=== PATIENT | female | born 1965 | race Caucasian/White ===

== ENCOUNTER 2017-05-24 10:08 | Inpatient (IN) | payer BC, OTHER ==
[2017-04-27 11:21] VITALS: BMI 48.0
--- NOTE | 2017-04-27 12:00 | PAT Medication Instructions ---
Service Date Apr 27, 2017. Current Home Medication List Atorvastatin (Lipitor), 40 MG PO QPM Bupropion (Wellbutrin-Xl), 300 MG PO QAM Celecoxib (CeleBREX), 200 MG PO QAM Clonazepam (Klonopin), 0.5 MG PO HS Cyclobenzaprine Hcl (Flexeril), 10 MG PO TID PRN for RN Duloxetine Hcl (Cymbalta), 60 MG PO QPM Ezetimibe (Zetia), 10 MG PO QPM Ferrous Sulfate (Kp Ferrous Sulfate), 1 TAB PO QAM Folic Acid (Folvite), 1 MG PO QAM Gabapentin (Neurontin), 300 MG PO QID Hydrochlorothiazide (Hydrochlorothiazide), 1 TAB PO QAM Insulin Detemir (Levemir), 35 INJ A/HS Losartan Potassium (Cozaar), 25 MG PO QAM Metformin Hcl (Glucophage), 1,000 MG PO BID Methotrexate (Methotrexate), 15 MG PO WEEKLY Omeprazole (Prilosec), 20 MG PO QAM Sitagliptin Phosphate (Januvia), 100 MG PO QAM Medication Instructions For Your Scheduled Surgery - Hold the following medications for 7 days per your surgeon's instructions: Methotrexate (Methotrexate), 15 MG PO WEEKLY Celecoxib (CeleBREX), 200 MG PO QAM - Hold the following medications 48 hours prior to surgery: Metformin Hcl (Glucophage), 1,000 MG PO BID - Hold the following medications the morning of surgery: Sitagliptin Phosphate (Januvia), 100 MG PO QAM Losartan Potassium (Cozaar), 25 MG PO QAM Hydrochlorothiazide (Hydrochlorothiazide), 1 TAB PO QAM Ferrous Sulfate (Kp Ferrous Sulfate), 1 TAB PO QAM Folic Acid (Folvite), 1 MG PO QAM Cyclobenzaprine Hcl (Flexeril), 10 MG PO TID PRN for RN - Take the following medications the morning of surgery with a sip of water: Omeprazole (Prilosec), 20 MG PO QAM Gabapentin (Neurontin), 300 MG PO QID Bupropion (Wellbutrin-Xl), 300 MG PO QAM - Take the following medications as scheduled the night before surgery: Gabapentin (Neurontin), 300 MG PO QID Ezetimibe (Zetia), 10 MG PO QPM Duloxetine Hcl (Cymbalta), 60 MG PO QPM Cyclobenzaprine Hcl (Flexeril), 10 MG PO TID PRN for RN (if needed) Clonazepam (Klonopin), 0.5 MG PO HS Atorvastatin (Lipitor), 40 MG PO QPM Insulin Detemir (Levemir), 35 INJ A/HS - For Insulin Dependent Diabetic patients: Test blood sugar A.M. of surgery. - If BLOOD SUGAR IS GREATER THAN 150, take half of your regular dose of: Insulin Detemir (Levemir), 35 INJ A/HS (TAKE 17 UNITS) - If BLOOD SUGAR IS LESS THAN 150, do not take any: Insulin Detemir ( Levemir), 35 INJ A/HS If you have any questions please call us at [phone] or [phone] or [phone]
--- NOTE | 2017-04-27 12:56 | DIAGNOSTIC IMAGING REPORT ---
TWO VIEW CHEST CLINICAL HISTORY: Preoperative examination. FINDINGS: PA and lateral chest radiographs are obtained. No prior studies are available for comparison at the time of dictation. The cardiomediastinal silhouette is unremarkable. The lungs and pleural spaces are clear. There is no pneumothorax. The bony thorax appears intact. IMPRESSION: No active disease in the chest. Electronically signed by: Alfredo Goncalves M.D. 04/27/2017 12:54 PM Dictated Date/Time: 04/27/2017 12:54 PM
[2017-04-27 13:01] LABS: BASO % 0.5 %; BASO ABS # 0.04 K/uL (0-0.2); COMPLETE YES; EOS % 3.3 %; HEMATOCRIT 30.8 % (37-47); IG% 0.3 %; LYMPH % 18.6 %; LYMPH ABS # 1.41 K/uL (1.2-3.4); MEAN CELL VOLUME 83.5 fL (80-100); MEAN CORPUSCULAR HEMOGLOBIN 26.3 pg (25-34); MEAN CORPUSCULAR HGB CONC 31.5 g/dl (32-36); MONO % 6.6 %; NEUT % 70.7 %; PLATELET COUNT 278 K/uL (130-400); RED BLOOD COUNT 3.69 M/uL (4.2-5.4); WHITE BLOOD COUNT 7.57 K/uL (4.8-10.8)
--- NOTE | 2017-04-27 13:04 | DIAGNOSTIC IMAGING REPORT ---
CERVICAL SPINE 3 VIEWS CLINICAL HISTORY: Preoperative examination. Rheumatoid arthritis. FINDINGS: Lateral views of the cervical spine in flexion and extension as well as in the neutral position are obtained. No prior studies are available for comparison at the time of dictation. The skeletal structures are well mineralized for age. Vertebral body height and alignment are maintained throughout the cervical spine. There is no evidence of inducible bony subluxation on the flexion/extension views. The atlantodental articulation appears maintained. The spinous processes are intact. The spinolaminar line is preserved. Anterior osteophytes are seen from C4 through C7. There is mild to moderate disc space narrowing seen at C4-C5, C5-C6, and C6-C7. Posterior disc osteophyte complexes at these levels likely contribute to acquired compromise of the central canal. The remaining disc spaces are preserved. The prevertebral soft tissues are within normal limits. IMPRESSION: 1. No acute bony abnormality is identified in the cervical spinal on these lateral views. 2. No bony subluxation is seen on the flexion/extension views. 3. Spondylotic change as above, greatest from C4-C5 through C6-C7. Dictated: 04/27/2017 12:55 PM Transcribed: 04/27/2017 1:03 PM [email or web address] Electronically signed by: Alfredo Goncalves M.D. 04/27/2017 1:05 PM Dictated Date/Time: 04/27/2017 12:55 PM
[2017-04-27 13:06] LABS: BUN/CREATININE RATIO 14.9 (10-20); CALCIUM 8.6 mg/dl (8.5-10.1); CREATININE 0.86 mg/dl (0.60-1.20)
[2017-04-27 13:15] LABS: URINE APPEARANCE CLEAR (CLEAR); URINE BILIRUBIN NEG (NEG); URINE COLOR YELLOW; URINE NITRITE NEG (NEG); URINE PH 5.5 (4.5-7.5); UROBILINOGEN NEG (NEG)
[2017-04-27 13:21] LABS: MANUAL MICROSCOPIC REQUIRED? NO; REVIEW REQ? NO
[2017-05-24] VITALS (7 sets, daily range): BP systolic 120–173; BP diastolic 64–99; PULSE 93–115; TEMP 36.8–37.1; O2SAT 86–99; Ht 162.6 cm; Wt 127.1 kg
[~2017-05-24] VITALS: Ht 162.6 cm; Wt 127.1 kg
[~2017-05-24 10:08] MED LIST: ATOR-24 PO; ATROPINE SULFATE 0.1 MG/ML 5ML SYR IV PRN; BUPRTAB51 PO; CEFAZOLIN 3000MG IV PUSH 15 ML IV SCH; CLB/200 PO; CLON0.5T3 PO; CYCL10TA6 PO; DULO60CA44 PO; EZET10TA63 PO; EpHEDrine SULFATE INJ 50 MG/ML AMP IV PRN; FENTANYL CITRATE INJ 50 MCG/1 ML 2 ML VIAL IV PRN; FERR1TAB13 PO; FOLI1TAB7 PO; GABA-113 PO; HYDR12.55 PO; HYDROmorphone INJ 1 MG/ML SYR IV PRN; LACTATED RINGER'S 1000ML 1,000 ML IV SCH; LOSA1TAB PO; LVMI INJ; METF-384 PO; METH2.5T PO; ONDANSETRON INJ 2 MG/ML 2 ML VIAL IV PRN; PRLSR20 PO; SITA100T3 PO
[2017-05-24 11:27] LABS: PREG INTERNAL NEGATIVE QC NEG CLEAR BACKGROUND; PREG INTERNAL POSITIVE QC POS CONTROL LINE
--- NOTE | 2017-05-24 12:13 | History & Physical Bridge Note ---
H&P Re-Evaluation Bridge Note: I have examined the patient, reviewed the History & Physical and in the interval since the performance of the History & Physical I have noted the following changes of clinical significance: No changes noted
--- NOTE | 2017-05-24 12:14 | History and Physical ---
History & Physical Date May 24, 2017. Chief Complaint Back and leg pain History of Present Illness The patient is a 52 year old female with complaints of back and leg pain Additional History Hepatic Disease: No Endocrine Disorder: No Kidney Disease: No Hypertension: No Heart Disease: No Bleeding Tendencies: No Infectious Diseases: No Allergies Coded Allergies: No Known Allergies (Unverified , 05/24/17) Home Medications Scheduled Atorvastatin (Lipitor), 40 MG PO QPM Bupropion (Wellbutrin-Xl), 300 MG PO QAM Celecoxib (CeleBREX), 200 MG PO QAM Clonazepam (Klonopin), 0.5 MG PO HS Duloxetine Hcl (Cymbalta), 60 MG PO QPM Ezetimibe (Zetia), 10 MG PO QPM Ferrous Sulfate (Kp Ferrous Sulfate), 1 TAB PO QAM Folic Acid (Folvite), 1 MG PO QAM Gabapentin (Neurontin), 300 MG PO QID Hydrochlorothiazide (Hydrochlorothiazide), 1 TAB PO QAM Insulin Detemir (Levemir), 40 UNITS INJ BID Losartan Potassium (Cozaar), 25 MG PO QAM Metformin Hcl (Glucophage), 1,000 MG PO BID Methotrexate (Methotrexate), 15 MG PO WEEKLY Omeprazole (Prilosec), 20 MG PO QAM Sitagliptin Phosphate (Januvia), 100 MG PO QAM Scheduled PRN Cyclobenzaprine Hcl (Flexeril), 10 MG PO TID PRN for RN Physical Examination Skin: warm/dry, no rash Eyes: normal inspection, EOMI, sclerae normal ENT: normal ENT inspection, pharynx normal Head: normocephalic, atraumatic Neck: supple, no adenopathy, trachea midline Respiratory/Chest: lungs clear, normal breath sounds, no respiratory distress Cardiovascular: regular rate, rhythm, no edema, no murmur Abdomen / GI: normal bowel sounds, non tender Back: normal inspection Extremities: normal inspection, normal range of motion Neurologic/Psych: no motor/sensory deficits, alert, normal reflexes, oriented x 3 Diagnosis Lumbar spinal stenosis Plan of Treatment L4 5 L5-S1 decompression and fusion
[2017-05-24] MEDS ORDERED: MIDAZOLAM HCL 1 MG/ML 2ML VIAL ONE (12:15)
[2017-05-24] MEDS ORDERED: FENTANYL CITRATE INJ 50 MCG/1 ML 2 ML VIAL ONE ×4 (12:15→16:24)
[2017-05-24] MEDS ORDERED: BUPIVACAINE/EPINEPHRINE 0.5% MPF 1:200,000 30 ML VIAL ONE (13:01)
[2017-05-24] MEDS ORDERED: BACITRACIN 50000 UNIT VIAL ONE (13:02)
[2017-05-24] MEDS ORDERED: HYDROmorphone INJ 2 MG/ML SYR/VIAL ONE ×2 (13:48→16:25)
[2017-05-24] MEDS ORDERED: LIDOCAINE HCL 2% 2 ML VIAL (20MG/ML) ONE (13:51)
[2017-05-24] MEDS ORDERED: DEXAMETHASONE SOD INJ 4 MG/ML VIAL ONE (13:51)
[2017-05-24] MEDS ORDERED: PROPOFOL IV EMULSION 10 MG/ML 20 ML VIAL IV ONE (13:51)
[2017-05-24] MEDS ORDERED: GLYCOPYRROLATE INJ 0.2 MG/ML VIAL ONE (13:51)
[2017-05-24] MEDS ORDERED: ONDANSETRON INJ 2 MG/ML 2 ML VIAL ONE (13:51)
[2017-05-24] MEDS ORDERED: NEOSTIGMINE METHYLSULFATE 1 MG/ML 10ML VIAL ONE (13:51)
[2017-05-24] MEDS ORDERED: FLOSEAL HEMOSTATIC MATRIX 10ML TOP ONE (15:27)
[2017-05-24] MEDS ORDERED: SODIUM CHLORIDE 0.9% 1000ML 1,000 ML IV SCH (15:33)
--- NOTE | 2017-05-24 15:41 | [facility] Operative Report ---
Operative Report Operative Date May 24, 2017. Pre-Operative Diagnosis Lumbar spinal stenosis Post-Operative Diagnosis Lumbar spinal stenosis Procedure(s) Performed #1 lumbar decompression medial facetectomy foraminotomies L4 5 L5-S1. #2 posterior spinal fusion L4 5 L5-S1. #3 placement posterior segmental transportation L4 5 L5-S1. #4 interbody fusion L5-S1. #5 placement peek cage 12 x 26 mm L5-S1. #6 placement of locally harvested morcellized autograft in the posterior lateral gutters. #7 placement infuse collagen sponge commode Master graft in the posterior lateral gutters and ostial amp in the interbody spaces. Surgeon Dr. Catie Domínguez Heel Cementer Surgeon(s) Chase Urrutia PA-C Estimated Blood Loss 300ml Findings Severe spinal stenosis with spondylolisthesis Specimens none per surgeon Description of Procedure Patient was met with preoperatively case discussed all questions addressed. After informed consent obtained patient was taken operative suite underwent intubation and placed in a prone position the [place] table top Jose Guadalupe frame. All bony prominences well-padded eyes inspected to ensure no external pressure placed upon them. This point the lumbar spine is prepped and draped nostril fashion. Sharp dissection with the assistance of Bovie cautery was performed onto an exposing the lamina and transverse processes of L4-L5 and sacral alar bilaterally. From a caudal to cephalad fashion complete laminectomy of L5 and L4 was performed addressing severe lateral recessed foraminal stenosis. Obvious instability L5-S1 was noted. After complete decompression pedicle screws were placed in L4 L5 S1 levels bilaterally with assistance of fluoroscopy in the purposes yolanda placed. Through a transforaminal approach on the left complete discectomy was performed and plate created to subcortical bleeding bone and a 12 x 26 mm peek cage filled with ostial amp tapped in position. The rods were then compressed locked into final position bilaterally. The transverse processes of L4 L5 and sacral alar burred to subcortical bleeding bone. Infuse collagen sponge mask graft locally harvested morcellized autograft was placed in the posterior lateral gutters. A 15 round LETY drain was inserted. Incision was then closed with 1 Vicryl in the fascia 2- 0 Vicryl subcutaneous tediously 4 Monocryl final skin closure Steri-Strips sterile dressings placed. Patient we can take PACU stable condition. Please note Magan diop was present at the entire procedure involved in patient positioning complex portions of the surgery and final skin closure. I attest to the content of the Intraoperative Record and any orders documented therein. Any exceptions are noted below.
[2017-05-24] MEDS ORDERED: BISACODYL 10 MG SUPP PR PRN (15:45)
[2017-05-24] MEDS ORDERED: LORAZEPAM 0.5 MG TAB PO PRN (15:45)
[2017-05-24] MEDS ORDERED: NALOXONE HCL 0.4 MG/1 ML VIAL/CARP IV PRN ×2 (15:45)
[2017-05-24] MEDS ORDERED: ACETAMINOPHEN 500 MG TAB PO PRN (15:45)
[2017-05-24] MEDS ORDERED: PROMETHAZINE HCL INJ 12.5 MG in SODIUM CHLORIDE 0.9% 50ML 50 ML IV PRN (15:45)
[2017-05-24] MEDS ORDERED: hydrOXYzine HCL 25 MG TAB PO PRN (15:45)
[2017-05-24] MEDS ORDERED: ALUMINUM/MAGNESIUM SUSP 30 ML UDC PO PRN (15:45)
[2017-05-24] MEDS ORDERED: LORAZEPAM INJ 0.5 MG in SYRINGE 0.75 ML IV PRN (15:45)
[2017-05-24] MEDS ORDERED: DO NOT ADMINISTER PNEUMOCOCCAL VACCINE PRN ×2 (15:45)
[2017-05-24] MEDS ORDERED: METOCLOPRAMIDE HCL INJ 5 MG/ML 2 ML VIAL IV PRN (15:45)
[2017-05-24] MEDS ORDERED: ONDANSETRON INJ 2 MG/ML 2 ML VIAL IV PRN ×2 (15:45→16:45)
[2017-05-24] MEDS ORDERED: SOD PHOSPHATE/SOD BIPHOSPHATE ENEMA 132 ML BTL PR PRN (15:45)
[2017-05-24] MEDS ORDERED: MAGNESIUM HYDROXIDE SUSP 30 ML UDC PO PRN (15:45)
[2017-05-24] MEDS ORDERED: ACETAMINOPHEN IV 100 ML IV PRN (15:45)
[2017-05-24] MEDS ORDERED: FAMOTIDINE 20 MG TAB PO PRN (15:45)
[2017-05-24] MEDS ORDERED: DO NOT ADMINISTER FLU VACCINE PRN ×3 (15:45)
[2017-05-24] MEDS: FENTANYL CITRATE INJ 50 MCG/1 ML 2 ML VIAL IV PRN ×2 (16:26→16:31)
[2017-05-24] MEDS ORDERED: ATROPINE SULFATE 0.1 MG/ML 5ML SYR IV PRN (16:30)
[2017-05-24] MEDS: HYDROmorphone HCL 0.5MG/ML 50 ML CASSETTE IV PRN ×4 (16:34→22:32)
[2017-05-24] MEDS: HYDROmorphone INJ 1 MG/ML SYR IV PRN ×8 (16:40→17:15)
[2017-05-24] MEDS ORDERED: EpHEDrine SULFATE INJ 50 MG/ML AMP IV PRN (16:45)
--- NOTE | 2017-05-24 16:58 | Anesthesiology Progress Note ---
Anesthesia Post Op Note Date & Time May 24, 2017 at 16:57 Vital Signs Pain Intensity: 5 Vital Signs Past 12 Hours Date Time Temp Pulse Resp B/P (MAP) Pulse Ox O2 Delivery O2 Flow Rate FiO2 05/24/17 16:49 105 13 98 05/24/17 16:49 105 13 05/24/17 16:46 154/64 05/24/17 16:44 96 15 05/24/17 16:44 96 15 98 05/24/17 16:43 36.8 98 16 154/64 (89) 97 Nasal Cannula 4 05/24/17 16:41 148/60 05/24/17 16:39 96 15 05/24/17 16:39 96 15 99 05/24/17 16:38 97 15 99 05/24/17 16:38 96 15 05/24/17 16:36 161/85 05/24/17 16:33 96 10 100 05/24/17 16:33 95 10 05/24/17 16:32 96 11 05/24/17 16:32 96 11 100 05/24/17 16:31 148/101 05/24/17 16:27 95 12 100 05/24/17 16:27 98 12 05/24/17 16:26 155/85 05/24/17 16:22 97 12 100 05/24/17 16:22 97 12 05/24/17 16:21 174/82 05/24/17 16:17 97 13 05/24/17 16:17 97 13 100 05/24/17 16:16 171/80 05/24/17 16:12 99 16 100 05/24/17 16:12 100 16 05/24/17 16:11 165/80 05/24/17 16:07 99 15 05/24/17 16:07 100 15 100 05/24/17 16:06 160/81 05/24/17 16:04 163/84 05/24/17 16:02 36.8 101 12 163/84 (113) 99 Oxymask 10 05/24/17 16:02 96 23 100 05/24/17 16:02 99 23 05/24/17 10:44 36.8 93 20 173/99 99 Room Air Notes Mental Status: alert / awake / arousable, participated in evaluation Pt Amnestic to Procedure: Yes Nausea / Vomiting: adequately controlled Pain: adequately controlled Airway Patency, RR, SpO2: stable & adequate BP & HR: stable & adequate Hydration State: stable & adequate Anesthetic Complications: no major complications apparent
[2017-05-24] MEDS ORDERED: PHARMACY GLYCEMIC MGMT CONSULT SCH (18:12)
[2017-05-24] MEDS ORDERED: INSULIN GLARGINE SOLOSTAR 100 UNITS/ML 3 ML PEN SC STA (18:16)
[2017-05-24] MEDS ORDERED: GLUCOSE 10 TABS/TUBE PO PRN (19:00)
[2017-05-24] MEDS ORDERED: GLUCOSE 40% GEL 15 GM TUBE PO PRN (19:00)
[2017-05-24] MEDS ORDERED: GLUCAGON FOR INJ 1 MG VIAL SQ PRN (19:00)
[2017-05-24] MEDS ORDERED: DEXTROSE 50% 50 ML SYR IV PRN (19:00)
[2017-05-24] MEDS: LACTATED RINGER'S 1000ML 1,000 ML IV SCH (19:14)
[2017-05-24] MEDS: DEXAMETHASONE INJ 6 MG in SYRINGE 0 ML IV SCH (20:34)
[2017-05-24] MEDS: CEFAZOLIN IV 2,000 MG in SYRINGE 0 ML IV SCH (20:34)
[2017-05-24] MEDS: CLONAZEPAM 0.5 MG TAB PO SCH (20:34)
[2017-05-24] MEDS: DOCUSATE SODIUM/SENNA 50/8.6MG TAB PO SCH (20:36)
[2017-05-24] MEDS: DULOXETINE HCL 60 MG CAP PO SCH (20:36)
[2017-05-24] MEDS: GABAPENTIN 300 MG CAP PO SCH (20:36)
[2017-05-24] MEDS: EZETIMIBE 10MG TAB PO SCH (20:37)
[2017-05-24] MEDS: ATORVASTATIN 20 MG TAB PO SCH (20:37)
[2017-05-24] MEDS: INSULIN ASPART 100 UNITS/ML 3 ML PEN SC SCH (20:38)
[2017-05-24] MEDS ORDERED: INSULIN ASPART 100 UNITS/ML 3 ML PEN SC SCH (21:00)
--- NOTE | 2017-05-24 22:38 | Medical Consult ---
Consultation Date of Consultation: May 24, 2017. Attending Physician: Salbador Domínguez D.O. History of Present Illness This is a 52 year old female with a PMH of insulin dependent DM2, depression/ anxiety, HLD, GERD, RA on methotrexate; presented secondary to lumbar spinal stenosis and a planned lumbosacral decompression/fusion. She went through the surgery and currently on a COMPUTATOR pump - states that her pain is controlled. No other issues to note currently. Social History Smoking Status: Former Smoker Allergies Coded Allergies: No Known Allergies (Unverified , 05/24/17) Current Inpatient Medications Current Inpatient Medications Medications (Trade) Dose Ordered Sig/Timbo Route Start Time Stop Time Status Last Admin Dose Admin Dexamethasone Sodium Phosphate 6 mg/Syringe 1.5 ml @ 1 mls/min Q8H IV 05/24/17 20:00 05/25/17 12:02 05/24/17 20:34 1 MLS/MIN Promethazine HCl 12.5 mg/Sodium Chloride 50.5 ml @ 202 mls/hr Q6H PRN IV 05/24/17 15:45 06/23/17 15:44 Ondansetron HCl (Zofran Inj) 4 mg Q6H PRN IV 05/24/17 15:45 06/23/17 15:44 Metoclopramide HCl (Reglan Inj) 10 mg Q6H PRN IV 05/24/17 15:45 06/23/17 15:44 Lorazepam (Ativan Tab) 0.5 mg Q8H PRN PO 05/24/17 15:45 06/23/17 15:44 Lorazepam 0.5 mg/ Syringe 1 ml @ 1 mls/min Q8H PRN IV 05/24/17 15:45 06/23/17 15:44 Pneumococcal Polysaccharide Vaccine 1 ea PRN PRN N/A 05/24/17 15:45 06/23/17 15:44 Influenza Virus Vacc Triv Types A&B 1 ea PRN PRN N/A 05/24/17 15:45 06/23/17 15:44 Polyethylene (Miralax Powder Packet) 17 gm Q6 PO 05/26/17 06:00 06/25/17 05:59 Bisacodyl (Dulcolax Supp) 10 mg DAILY PRN ID 05/24/17 15:45 06/23/17 15:44 Magnesium Hydroxide (Milk Of Magnesia Susp) 30 ml DAILY PRN PO 05/24/17 15:45 06/23/17 15:44 Hydromorphone HCl (Dilaudid Inj) 0.5 mg Q3H PRN IV 05/25/17 06:00 06/08/17 05:59 Oxycodone HCl (Roxicodone Immediate Rel Tab) 5-10mg prn moderate to sev... Q4H PRN PO 05/25/17 06:00 06/08/17 05:59 Cefazolin Sodium 2000 mg/Syringe 10 ml @ 2.5 mls/min Q8H IV 05/24/17 20:00 05/25/17 04:03 05/24/17 20:34 2.5 MLS/MIN Lactated Ringer's 1,000 ml @ 150 mls/hr Q6H40M IV 05/24/17 18:30 06/23/17 18:29 05/24/17 19:14 150 MLS/HR Acetaminophen (Tylenol Tab) 1,000 mg Q8H PRN PO 05/24/17 15:45 06/23/17 15:44 Acetaminophen 100 ml @ 400 mls/hr Q8H PRN IV 05/24/17 15:45 06/23/17 15:44 Naloxone HCl (Narcan Inj) 0.1 mg Q5M PRN IV 05/24/17 15:45 06/23/17 15:44 Senna/Docusate Sodium (Senokot S Tab) 2 tab HS PO 05/24/17 21:00 06/23/17 20:59 05/24/17 20:36 2 TAB Sodium Biphosphate/ Sodium Phosphate (Fleet Enema) 132 ml ONE PRN ID 05/24/17 15:45 06/23/17 15:44 Hydroxyzine HCl (Vistaril Tab) 25 mg Q8H PRN PO 05/24/17 15:45 06/23/17 15:44 Al Hydroxide/Mg Hydroxide (Maalox Susp) 30 ml Q6H PRN PO 05/24/17 15:45 06/23/17 15:44 Famotidine (Pepcid Tab) 20 mg Q12 PRN PO 05/24/17 15:45 06/23/17 15:44 Diphenhydramine HCl (Benadryl Cap) 25 mg Q6H PRN PO 05/24/17 15:45 06/23/17 15:44 Miscellaneous Information (Discontinue COMPUTATOR) 1 ea TODAY@0600 N/A 05/25/17 06:00 05/25/17 06:01 Naloxone HCl (Narcan Inj) 0.1 mg Q5M PRN IV 05/24/17 15:45 05/25/17 06:00 Hydromorphone HCl (Dilaudid Loan Closer) 25 mg PRN PRN IV 05/24/17 15:45 05/25/17 06:00 05/24/17 18:57 25 MG Sodium Chloride 1,000 ml @ 15 mls/hr Q24H IV 05/24/17 15:33 05/25/17 06:00 Atorvastatin Calcium (Lipitor Tab) 40 mg QPM PO 05/24/17 21:00 06/23/17 20:59 05/24/17 20:37 40 MG Bupropion HCl (Wellbutrin-Xl Tab) 300 mg QAM PO 05/25/17 09:00 06/24/17 08:59 Clonazepam (Klonopin Tab) 0.5 mg HS PO 05/24/17 21:00 06/23/17 20:59 Duloxetine HCl (Cymbalta Cap) 60 mg QPM PO 05/24/17 21:00 06/23/17 20:59 05/24/17 20:36 60 MG EZETIMIBE (Zetia Tab) 10 mg QPM PO 05/24/17 21:00 06/23/17 20:59 05/24/17 20:37 10 MG Gabapentin (Neurontin Cap) 300 mg QID PO 05/24/17 21:00 06/23/17 20:59 05/24/17 20:36 300 MG Losartan Potassium (coZAAR TAB) 25 mg QAM PO 05/25/17 09:00 06/24/17 08:59 Hydrochlorothiazide (Hydrochlorothiazide Tab) 12.5 mg QAM PO 05/25/17 09:00 06/24/17 08:59 Pantoprazole Sodium (Protonix Tab) 40 mg QAM PO 05/25/17 09:00 06/24/17 08:59 Miscellaneous Information (Consult Glycemic Management Pharmacy) 1 ea UD N/A 05/24/17 18:12 06/23/17 18:11 Hydromorphone HCl (Dilaudid Inj) 1 mg Q3H PRN IV 05/25/17 06:00 06/08/17 05:59 Insulin Aspart (novoLOG ASPART) SLIDING SCALE ACHS SC 05/24/17 21:00 06/23/17 20:59 05/24/17 20:38 6 UNITS Glucose (Glucose 40% Gel) 15-30 GRAMS 15 GRAMS... UD PRN PO 05/24/17 19:00 06/23/17 18:59 Glucose (Glucose Chew Tab) 4-8 Tablets 4 Tabl... UD PRN PO 05/24/17 19:00 06/23/17 18:59 Dextrose (Dextrose 50% 50ML Syringe) 25-50ML OF 50% DW IV FOR... UD PRN IV 05/24/17 19:00 06/23/17 18:59 Glucagon (Glucagon Inj) 1 mg UD PRN SQ 05/24/17 19:00 06/23/17 18:59 Review of Systems Constitutional: No fever, No chills, No weakness Respiratory: No cough, No sputum, No wheezing, No shortness of breath, No dyspnea on exertion, No dyspnea at rest, No hemoptysis Cardiovascular: No chest pain, No edema, No palpitations Abdomen: No pain, No nausea, No vomiting, No diarrhea, No constipation, No GI bleeding Musculoskeletal: No joint pain, No muscle pain Genitourinary - Female: No dysuria, No urinary frequency, No urinary urgency, No urinary incontinence, No urinary retention, No hematuria Neurologic: No weakness, No numbness/tingling, No vertigo, No balance problems Psychiatric: No depression symptoms (controlled with medications), No anxiety, No insomnia Endocrine: No fatigue Hematologic / Lymphatic: No abnormal bleeding/bruising Integumentary: No rash Allergic / Immunologic: No environmental allergies, No seasonal allergies Physical Exam Date Time Temp Pulse Resp B/P (MAP) Pulse Ox O2 Delivery O2 Flow Rate FiO2 05/24/17 21:35 113 16 135/82 (99) 86 CPAP 05/24/17 20:40 36.9 112 16 151/64 (93) 97 Nasal Cannula 2.0 05/24/17 19:45 Nasal Cannula 3.0 05/24/17 19:40 37.0 115 18 120/70 (87) 99 Nasal Cannula 3.0 05/24/17 18:10 36.8 112 16 133/76 (95) 98 Nasal Cannula 2.0 05/24/17 17:46 36.9 107 16 137/69 (91) 96 Nasal Cannula 3.0 05/24/17 17:40 Nasal Cannula 3.0 05/24/17 17:40 Nasal Cannula 05/24/17 17:31 175/85 05/24/17 17:27 111 8 05/24/17 17:27 110 8 96 05/24/17 17:26 120/86 05/24/17 17:22 111 17 05/24/17 17:22 111 17 95 05/24/17 17:21 132/83 05/24/17 17:18 119/79 05/24/17 17:17 106 13 05/24/17 17:17 107 13 94/66 94 05/24/17 17:16 100/62 05/24/17 17:12 103 12 05/24/17 17:12 104 12 95 05/24/17 17:11 111/49 05/24/17 17:10 120/53 05/24/17 17:07 101 13 05/24/17 17:07 100 13 103/49 94 05/24/17 17:02 97 12 05/24/17 17:02 98 12 169/60 98 05/24/17 17:01 185/72 05/24/17 16:57 99 13 97 05/24/17 16:57 100 13 05/24/17 16:56 155/71 05/24/17 16:55 105 12 98 05/24/17 16:55 105 12 05/24/17 16:51 169/71 05/24/17 16:50 101 14 96 05/24/17 16:50 100 14 05/24/17 16:49 105 13 98 05/24/17 16:49 105 13 05/24/17 16:46 154/64 05/24/17 16:44 96 15 05/24/17 16:44 96 15 98 05/24/17 16:43 36.8 98 16 154/64 (89) 97 Nasal Cannula 4 05/24/17 16:41 148/60 05/24/17 16:39 96 15 05/24/17 16:39 96 15 99 05/24/17 16:38 97 15 99 05/24/17 16:38 96 15 05/24/17 16:36 161/85 05/24/17 16:33 96 10 100 05/24/17 16:33 95 10 05/24/17 16:32 96 11 05/24/17 16:32 96 11 100 05/24/17 16:31 148/101 05/24/17 16:27 95 12 100 05/24/17 16:27 98 12 05/24/17 16:26 155/85 05/24/17 16:22 97 12 100 05/24/17 16:22 97 12 05/24/17 16:21 174/82 05/24/17 16:17 97 13 05/24/17 16:17 97 13 100 05/24/17 16:16 171/80 05/24/17 16:12 99 16 100 05/24/17 16:12 100 16 05/24/17 16:11 165/80 05/24/17 16:07 99 15 05/24/17 16:07 100 15 100 05/24/17 16:06 160/81 05/24/17 16:04 163/84 05/24/17 16:02 36.8 101 12 163/84 (113) 99 Oxymask 10 05/24/17 16:02 96 23 100 05/24/17 16:02 99 23 05/24/17 10:44 36.8 93 20 173/99 99 Room Air General Appearance: no apparent distress Head: normocephalic, atraumatic ENT: hearing grossly normal Neck: supple Respiratory/Chest: chest non-tender, lungs clear, normal breath sounds, no respiratory distress, no accessory muscle use Cardiovascular: regular rate, rhythm, no edema, no murmur Abdomen/GI: normal bowel sounds, non tender, soft Back: no CVA tenderness, no muscle spasm Extremities/Musculoskelatal: normal inspection, no calf tenderness, normal capillary refill, no pedal edema, normal range of motion Neurologic/Psych: no motor/sensory deficits, alert, normal mood/affect Skin: normal color Lymphatic: no adenopathy Laboratory Results Last 24 Hours Test 05/24/17 10:25 05/24/17 10:29 05/24/17 16:05 05/24/17 20:33 Human Chorionic Gonadotropin, Qual NEG Bedside Glucose 117 mg/dl 144 mg/dl 217 mg/dl Assessment & Plan This is a 52 year old female with a PMH of insulin dependent DM2, depression/ anxiety, HLD, GERD, RA on methotrexate; presented secondary to lumbar spinal stenosis and a planned lumbosacral decompression/fusion. Lumbar Spinal Stenosis Lumbar Decompression/Fusion POD #0 currently on a Dilaudid COMPUTATOR pump pain controlled no other issues to note DVT ppx as per ortho Insulin Dependent DM2 patient takes Levemir 40 units BID as well as Metformin and Januvia we will hold oral agents start a sliding scale insulin She received 62 units of Lantus prior to me seeing her, so we will hold the evening basal insulin should probably go back to Levemir 40 units BID starting in the AM due to intraoperative steroid use, pharmacy also consulted for glycemic control continue Cozaar Depression/Anxiety continue current medications (Wellbutrin, Cymbalta, Klonopin, Gabapentin and Ativan as needed) HLD continue Lipitor and Zetia DVT ppx as per ortho FULL CODE
[2017-05-25] MEDS: LACTATED RINGER'S 1000ML 1,000 ML IV SCH (01:19)
[2017-05-25] MEDS: CEFAZOLIN IV 2,000 MG in SYRINGE 0 ML IV SCH (03:40)
[2017-05-25] MEDS: DEXAMETHASONE INJ 6 MG in SYRINGE 0 ML IV SCH ×2 (03:41→13:05)
[2017-05-25 03:55] VITALS: BP 139/69; PULSE 119; TEMP 36.6; O2SAT 97
[2017-05-25] MEDS ORDERED: NURSING DECISION MEDICATION ORDER SCH (05:30)
[2017-05-25 05:50] LABS: COMPLETE YES; HEMATOCRIT 29.1 % (37-47); IG% 0.3 %; LYMPH % 3.6 %; LYMPH ABS # 0.48 K/uL (1.2-3.4); MEAN CELL VOLUME 85.6 fL (80-100); MEAN CORPUSCULAR HEMOGLOBIN 26.8 pg (25-34); MEAN CORPUSCULAR HGB CONC 31.3 g/dl (32-36); MEAN PLATELET VOLUME 9.1 fL (7.4-10.4); MONO % 2.5 %; NEUT % 93.6 %; PLATELET COUNT 290 K/uL (130-400)
[2017-05-25] MEDS ORDERED: DC PCA SCH (06:00)
[2017-05-25] MEDS ORDERED: HYDROmorphone INJ 0.5 MG/0.5 ML SYR IV PRN (06:00)
[2017-05-25] MEDS ORDERED: HYDROmorphone INJ 1 MG/ML SYR IV PRN (06:00)
[2017-05-25 06:19] LABS: BUN/CREATININE RATIO 14.6 (10-20); CREATININE 1.12 mg/dl (0.60-1.20); POTASSIUM 4.2 mmol/L (3.5-5.1)
[2017-05-25 07:02] LABS: ESTIMATED AVERAGE GLUCOSE 189 mg/dl; HA1C FLAG Normal (Normal)
[2017-05-25 07:21] VITALS: BP 126/75; PULSE 103; TEMP 37; O2SAT 96
[2017-05-25] MEDS: OXYCODONE HCL IR 5 MG TAB (IMMEDIATE RELEASE) PO PRN ×4 (07:45→23:25)
[2017-05-25] MEDS: INSULIN GLARGINE SOLOSTAR 100 UNITS/ML 3 ML PEN SC SCH ×2 (07:47→21:32)
[2017-05-25] MEDS: BuPROPion XL 300 MG TABCR PO SCH (08:59)
[2017-05-25] MEDS: LOSARTAN POTASSIUM 25 MG TAB PO SCH (08:59)
[2017-05-25] MEDS: GABAPENTIN 300 MG CAP PO SCH ×4 (08:59→21:34)
[2017-05-25] MEDS: HYDROCHLOROTHIAZIDE 25 MG TAB PO SCH (08:59)
[2017-05-25] MEDS: PANTOprazole SOD 40 MG TAB PO SCH (08:59)
[2017-05-25] MEDS ORDERED: SITAGLIPTIN 100 MG TAB PO SCH (09:00)
[2017-05-25] MEDS: INSULIN ASPART 100 UNITS/ML 3 ML PEN SC SCH ×4 (09:10→21:31)
--- NOTE | 2017-05-25 12:01 | Progress Note ---
Progress Note Date of Service May 25, 2017. Progress Note Patient's postop day #1. Her back pain is controlled. Leg pain improved. Vital signs are stable. LETY drain decreasing appropriately. On exam patient is in chair at bedside as good strength testing appears comfortable. Assessment status post lumbar decompression fusion per plan at this time we will continue physical therapy advance her bowel regimen anticipate possible home tomorrow or Monday.
[2017-05-25] MEDS ORDERED: RXC5 PO (12:07)
--- NOTE | 2017-05-25 12:08 | Discharge Instructions ---
Discharge Instructions Date of Service May 25, 2017. Admission Reason for Admission: Lumbar Spinal Stenosis, Radiculopathy Discharge Discharge Diagnosis / Problem: lumbar stenosis Discharge Goals Goal(s): Improve function Activity Recommendations Activity Limitations: per Instructions/Follow-up section . Instructions / Follow-Up Instructions / Follow-Up ACTIVITY RECOMMENDATIONS: SELF CARE INSTRUCTIONS AFTER THORACIC/LUMBAR FUSIONS 1. You may walk to your tolerance. It is good exercise for your legs and back. Expect some back and intermittent leg aches and pains. 2. You may perform "counter-top" level activities (make a sandwich, lori with a project, etc.). 3. No bending or lifting of more than 10 pounds or back twisting of any nature (roll like a log when turning in bed). 4. You may ride in a car for 20-30 minutes at a time. No driving until after your first visit with your doctor. 5. Frequent changes of position and restricting sitting to 30 minutes at a time will help limit the amount of back spasms and stiffness you may experience. 6. You may discontinue the use of ambulatory aids (cane, crutches, etc.) once your strength and confidence allow. 7. You may mine captain the shower and let water strike your incision when you arrive home at least once daily. Do not take a tub bath, sit in a hot tub or go into a swimming pool until after your first recheck in the office. SPECIAL CARE INSTRUCTIONS: VERY IMPORTANT TO READ AND REVIEW A. Your surgical incision has been closed with a cosmetic suture under the skin that will dissolve in about 6 weeks. In 14 days, you can use a pair of clean scissors and cut the suture that is left outside of the skin at the ends of your incision. 1. The small skin tapes can be removed 7 days after surgery if they have not fallen off by that point. 2. You may keep the wound open to air as much as possible to promote healing after post-op day number 5 unless told otherwise by your doctor. 3. If you think the wound looks like it is becoming infected (redness or worsening drainage) and/or you are experiencing fever, chill or worsening back pain and muscle spasms, contact the office so that we may evaluate you as soon as possible. B. Complications are uncommon, but please contact us if you have any signs or symptoms of: 1. wound infection (fever higher than 102.5 degrees F, redness, separation of wound, drainage, or increasing pain from the incision) 2. blood clots in legs (pain, swelling, redness and warmth in legs) 3. urinary tract infection (fever higher than 102.5 degrees F, burning upon urination or increased frequency of urination) 4. nerve problems (inability to walk on your toes or heels, numbness, loss of bowel or bladder control) 5. any other symptoms that concern you C. Please call the office at if you have any concerns or questions about your operation or recovery. D. No smoking! Smoking drastically decreases the chance of a solid fusion. E. Do not take any anti-inflammatory medications (Indocin, Advil, Motrin, Aspirin, Naprosyn, etc.) as these may inhibit the chance of a solid fusion. Tylenol is okay to take for pain. MANAGING PAIN AFTER SPINAL SURGERY 1. Narcotic medication is intended for short-term use and will be provided for surgical pain. Surgical pain usually lasts for a period of 4-6 weeks. Narcotic medication includes Percocet, Vicodin, Darvocet, Tylenol #3 or Lortab. 2. Longer-term pain is more appropriately treated with non-narcotic medication such as Tylenol ES. 3. Muscle spasm is not appropriately treated with narcotics. Muscle relaxers such as Soma, Flexeril or Skelaxin can be used along with Tylenol ES. 4. Remember that we all live with some "aches and pains". This is not unusual or uncommon after an injury or as we get older. a. Back pain is expected and may include muscle spasms for 4 to 6 weeks after surgery. The pain should gradually improve. If the pain worsens for no apparent reason, please contact the office. b. Intermittent leg pain may also be experienced and should not be concerned about unless it worsens for no apparent reason. If so, please contact the office. 5. We will provide appropriate medication within the normal guidelines of their prescribed use. We will also be very cautious and aware of potential abuse and extended duration of patients' medication needs. a. Pain medications are for your comfort and to assist with sleep and rest so that the tissue can heal. They are not provided in order to return to normal activity and should not be used through the day. To do so or worsening pain at night can result from ongoing tissue damage and development of tolerance to the prescribed medicine. 6. Please allow 2-3 days to process refills. Prescriptions will not be mailed but must be picked up at the office. FOLLOW UP VISIT: Keep your scheduled follow-up appointment. Any questions, please call the office at . Current Hospital Diet Patient's current hospital diet: Diabetes Type 2 Diet Discharge Diet Recommended Diet: Regular Diet Procedures Procedures Performed: #1 lumbar decompression medial facetectomy foraminotomies L4 5 L5-S1. #2 posterior spinal fusion L4 5 L5-S1. #3 placement posterior segmental transportation L4 5 L5-S1. #4 interbody fusion L5-S1. #5 placement peek cage 12 x 26 mm L5-S1. #6 placement of locally harvested morcellized autograft in the posterior lateral gutters. #7 placement infuse collagen sponge commode Master graft in the posterior lateral gutters and ostial amp in the interbody spaces. Pending Studies Studies pending at discharge: no Laboratory Results Hemoglobin A1c Test 05/25/17 04:57 Range/Units Estimated Average Glucose 189 mg/dl Hemoglobin A1c 8.2 H 4.5-5.6 % Medical Emergencies . Who to Call and When: Medical Emergencies: If at any time you feel your situation is an emergency, please call 911 immediately. . Non-Emergent Contact Non-Emergency issues call your: Primary Care Provider . "Provider Documentation" section prepared by Salbador Domínguez. . VTE Core Measure Inpt VTE Proph given/why not?: Ag Hernandez, MADALYN's
[2017-05-25 15:40] VITALS: BP 148/66; PULSE 103; TEMP 36.4; O2SAT 98
--- NOTE | 2017-05-25 17:25 | Progress Note ---
Internal Med Progress Note Date of Service: May 25, 2017. Provider Documentation: SUBJECTIVE: sitting on the chair and eating lunch pain is controlled with pain meds afebrile ambulated with PT no sob OBJECTIVE: Vital Signs-as noted below Exam: General-alert and oriented. Not in distress ENT-Normal hearing Neck-no neck masses Lungs-CTA b/l no wheezing or crackles Heart-S1 and S2 heard. regular rate and rhythm, no murmurs Abdomen-Soft Bowel sounds present no tenderness present no distension Extremities-no pedal edema no erythema Musculoskeletal s/p back surgery Neuro-alert and awake moves extremities Lab data as noted below. ASSESSMENT & PLAN: This is a 52 year old female with a PMH of insulin dependent DM2, depression/ anxiety, HLD, GERD, RA on methotrexate; presented secondary to lumbar spinal stenosis and a planned lumbosacral decompression/fusion. Lumbar Spinal Stenosis Lumbar Decompression/Fusion POD #1 pain control and dvt px as per ortho Insulin Dependent DM2 holding metformin Levemir 40mg bid and iss will monitor Depression/Anxiety To continue current medications (Wellbutrin, Cymbalta, Klonopin, Gabapentin and Ativan as needed) HLD To continue Lipitor and Zetia DVT ppx as per ortho FULL CODE DISPOSITION as per ortho Vital Signs: Date Time Temp Pulse Resp B/P (MAP) Pulse Ox O2 Delivery O2 Flow Rate FiO2 05/25/17 15:40 36.4 103 18 148/66 (93) 98 Room Air 05/25/17 15:15 Room Air 05/25/17 07:30 Room Air 05/25/17 07:21 37.0 103 16 126/75 (92) 96 Room Air 05/25/17 03:55 36.6 119 16 139/69 (92) 97 Nasal Cannula 2.0 05/24/17 22:55 37.1 109 18 133/88 (103) 99 Nasal Cannula 2.0 05/24/17 22:50 Nasal Cannula 2.0 05/24/17 21:35 113 16 135/82 (99) 86 CPAP 05/24/17 20:40 36.9 112 16 151/64 (93) 97 Nasal Cannula 2.0 05/24/17 19:45 Nasal Cannula 3.0 05/24/17 19:40 37.0 115 18 120/70 (87) 99 Nasal Cannula 3.0 05/24/17 18:10 36.8 112 16 133/76 (95) 98 Nasal Cannula 2.0 05/24/17 17:46 36.9 107 16 137/69 (91) 96 Nasal Cannula 3.0 05/24/17 17:40 Nasal Cannula 3.0 05/24/17 17:40 Nasal Cannula 05/24/17 17:31 175/85 05/24/17 17:27 111 8 05/24/17 17:27 110 8 96 05/24/17 17:26 120/86 Lab Results: Results Past 24 Hours Test 05/24/17 20:33 05/25/17 04:57 05/25/17 07:58 05/25/17 12:17 Range/Units Bedside Glucose 217 277 236 70-90 mg/dl White Blood Count 13.50 4.8-10.8 K/uL Red Blood Count 3.40 4.2-5.4 M/uL Hemoglobin 9.1 12.0-16.0 g/dL Hematocrit 29.1 37-47 % Mean Corpuscular Volume 85.6 80-100 fL Mean Corpuscular Hemoglobin 26.8 25-34 pg Mean Corpuscular Hemoglobin Concent 31.3 32-36 g/dl Platelet Count 290 130-400 K/uL Mean Platelet Volume 9.1 7.4-10.4 fL Neutrophils (%) (Auto) 93.6 % Lymphocytes (%) (Auto) 3.6 % Monocytes (%) (Auto) 2.5 % Eosinophils (%) (Auto) 0.0 % Basophils (%) (Auto) 0.0 % Neutrophils # (Auto) 12.64 1.4-6.5 K/uL Lymphocytes # (Auto) 0.48 1.2-3.4 K/uL Monocytes # (Auto) 0.34 0.11-0.59 K/uL Eosinophils # (Auto) 0.00 0-0.5 K/uL Basophils # (Auto) 0.00 0-0.2 K/uL RDW Standard Deviation 56.7 36.4-46.3 fL RDW Coefficient of Variation 18.1 11.5-14.5 % Immature Granulocyte % (Auto) 0.3 % Immature Granulocyte # (Auto) 0.04 0.00-0.02 K/uL Sodium Level 135 136-145 mmol/L Potassium Level 4.2 3.5-5.1 mmol/L Chloride Level 100 98-107 mmol/L Carbon Dioxide Level 25 21-32 mmol/L Anion Gap 10.0 3-11 mmol/L Blood Urea Nitrogen 16 7-18 mg/dl Creatinine 1.12 0.60-1.20 mg/dl Est Creatinine Clear Calc Drug Dose 44.2 ml/min Estimated GFR () 64.9 Estimated GFR (Non- 56.0 BUN/Creatinine Ratio 14.6 10-20 Random Glucose 267 70-99 mg/dl Estimated Average Glucose 189 mg/dl Hemoglobin A1c 8.2 4.5-5.6 % Calcium Level 8.0 8.5-10.1 mg/dl Test 05/25/17 17:03 Range/Units Bedside Glucose 193 70-90 mg/dl
[2017-05-25] MEDS: CLONAZEPAM 0.5 MG TAB PO SCH (21:34)
[2017-05-25] MEDS: EZETIMIBE 10MG TAB PO SCH (21:34)
[2017-05-25] MEDS: ATORVASTATIN 20 MG TAB PO SCH (21:34)
[2017-05-25] MEDS: DOCUSATE SODIUM/SENNA 50/8.6MG TAB PO SCH (21:34)
[2017-05-25] MEDS: DULOXETINE HCL 60 MG CAP PO SCH (21:35)
[2017-05-25 23:10] VITALS: BP 123/71; PULSE 90; TEMP 36.4; O2SAT 95
[2017-05-26] MEDS ORDERED: INSULIN ASPART 100 UNITS/ML 3 ML PEN SC ONE (02:00)
[2017-05-26] MEDS: POLYETHYLENE (MIRALAX) 17 GM PACK PO SCH ×2 (06:28→12:51)
[2017-05-26] MEDS: OXYCODONE HCL IR 5 MG TAB (IMMEDIATE RELEASE) PO PRN ×2 (08:02→12:52)
[2017-05-26] MEDS: BuPROPion XL 300 MG TABCR PO SCH (08:03)
[2017-05-26] MEDS: LOSARTAN POTASSIUM 25 MG TAB PO SCH (08:03)
[2017-05-26] MEDS: PANTOprazole SOD 40 MG TAB PO SCH (08:03)
[2017-05-26] MEDS: HYDROCHLOROTHIAZIDE 25 MG TAB PO SCH (08:04)
[2017-05-26] MEDS: INSULIN ASPART 100 UNITS/ML 3 ML PEN SC SCH ×2 (08:08→12:00)
[2017-05-26] MEDS: INSULIN GLARGINE SOLOSTAR 100 UNITS/ML 3 ML PEN SC SCH (08:09)
[2017-05-26] MEDS ORDERED: METFORMIN HCL 500 MG TAB PO SCH (08:30)
--- NOTE | 2017-05-26 08:40 | Pharmacy Progress Note ---
Pharmacy Glycemic Short Note 2 Date of Service May 26, 2017. OUTPATIENT ANTIDIABETIC REGIMEN: * Levemir 40 units SQ BID * Metformin 1gm PO BID * Januvia 100mg PO daily * HbA1c: 8.2% (05/25/17) ASSESSMENT: * Ms Mccallum is a 52yo diabetic female admitted with lumbar spinal stenosis, s/ p lumbar decompression/spinal fusion (POD #2). * Patient received several doses of IV dexamethasone adeola-operatively, contributing to hyperglycemia. * With aggressive insulin dosing and discontinuation of steroids, BSGs have begun to improve. * Have resumed oral agents this morning in anticipation of discharge in the next day or so. * Current A1c indicates sub-optimal control as an outpatient. PLAN FOR INPATIENT GLYCEMIC CONTROL: * Resume outpatient oral diabetes medications * Basal insulin * Lantus 40 units SQ BID * Bolus insulin * NovoLog per scale ACHS or Q6hrs while NPO * Goal Range: Low 100 mg/dL - High 140 mg/dL * Correction Factor: 15 mg/dL/unit * Nutritional / Prandial insulin per carb ratio of 1 unit per 4 grams CHO consumed PLAN FOR DISCHARGE: * Current A1c indicates sub-optimal control as an outpatient. * Consider increasing insulin on discharge; perhaps adding some correctional insulin? * Recommend f/u with outpatient provider after discharge to optimize glycemic control, especially to facilitate wound/infection healing.
[2017-05-26] MEDS ORDERED: SITAGLIPTIN 100 MG TAB PO SCH (09:00)
[2017-05-26] MEDS: GABAPENTIN 300 MG CAP PO SCH ×2 (09:34→12:51)
[2017-05-26 10:02] VITALS: BP 123/71; PULSE 90; TEMP 36.4; O2SAT 95
--- NOTE | 2017-05-26 13:14 | Discharge Summary ---
Orthopedic Discharge Summary Admission Date/Reason May 24, 2017 at 12:00 Lumbar Spinal Stenosis, Radiculopathy. Discharge Date/Disposition May 26, 2017 Home Diagnosis Principal Diagnosis: Lumbar spinal stenosis Admission Physical Exam As per Admitting History & Physical. Hospital Course Patient underwent lumbar decompression fusion tolerated this well as taken to the orthopedic floor postoperatively. Postoperative day 1 she was up and amatory progressed nicely through postop day #2. Socially she was discharged home on postoperative day #3. Discharge orders and instructions found the chart for further review. Discharge Instructions Please refer to the electronic Patient Visit Report (Discharge Instructions) for additional information.
--- NOTE | 2017-05-30 09:24 | DIAGNOSTIC IMAGING REPORT ---
INTRAOPERATIVE RADIOGRAPHS CLINICAL HISTORY: L4-S1 spinal fusion. Fluoroscopy time: 25 seconds. FINDINGS: 2 spot fluoroscopic views of the lumbar spine are presented. There has been discectomy at L5-S1 with laminectomy and posterior fusion from L4 to S1. Interpedicular screws are present at all levels. The orthopedic hardware appears intact. IMPRESSION: Intraoperative images from L4 -S1 spinal fusion as above. Electronically signed by: Alfredo Goncalves M.D. 05/24/2017 4:36 PM Dictated Date/Time: 05/24/2017 4:35 PM
== END 2017-05-26 13:54 | disposition home or self-care (01) | DRG 455 ==
LOC: C.ACU 10:08 → C.3E 12:00 → ENRESERV 16:21
PROVIDERS: ADMIT Orthopaedic Surgery Orthopaedic Surgery of the Spine; ATTEND Orthopaedic Surgery Orthopaedic Surgery of the Spine
PROC: 0SG3071 Fusion of Lumbosacral Joint with Autologous Tissue Substitute, Posterior Approach, Posterior Column, Open Approach (ICD-10-PCS; principal; 2017-05-24 12:15)
PROC: 0ST40ZZ Resection of Lumbosacral Disc, Open Approach (ICD-10-PCS; principal; 2017-05-24 12:15)
PROC: 0SG0071 Fusion of Lumbar Vertebral Joint with Autologous Tissue Substitute, Posterior Approach, Posterior Column, Open Approach (ICD-10-PCS; principal; 2017-05-24 12:15)
PROC: 0SG30AJ Fusion of Lumbosacral Joint with Interbody Fusion Device, Posterior Approach, Anterior Column, Open Approach (ICD-10-PCS; principal; 2017-05-24 12:15)
DX: M48.061 Spinal stenosis, lumbar region without neurogenic claudication (principal); Z79.4 Long term (current) use of insulin; M54.16 Radiculopathy, lumbar region; Z87.891 Personal history of nicotine dependence; E11.9 Type 2 diabetes mellitus without complications; E78.5 Hyperlipidemia, unspecified; F41.8 Other specified anxiety disorders; K21.9 Gastro-esophageal reflux disease without esophagitis; M06.9 Rheumatoid arthritis, unspecified; Z79.899 Other long term (current) drug therapy